=== PATIENT | male | born 1995 | race African-American/Black ===

== ENCOUNTER 2017-09-08 21:47 | Emergency (ER) | payer SELFPAY ==
[~2017-09-08] VITALS: Ht 172.7 cm; Wt 100.0 kg
[2017-09-08] MEDS ORDERED: METHOCARBAMOL 500MG TABLET PO ONE (23:00)
[2017-09-08] MEDS ORDERED: IBUPROFEN 600MG TABLET PO ONE (23:00)
[2017-09-09 02:19] VITALS: BP 125/64
== END 2017-09-09 02:21 | disposition home or self-care (01) ==
LOC: ER 21:56
DX: S16.1XXA Strain of muscle, fascia and tendon at neck level, initial encounter (principal); F12.10 Cannabis abuse, uncomplicated; H40.9 Unspecified glaucoma; V43.52XA Car driver injured in collision with other type car in traffic accident, initial encounter; Y93.I9 Activity, other involving external motion; Y92.89 Other specified places as the place of occurrence of the external cause; Y99.8 Other external cause status
CPT/HCPCS: 70450; 72125; 99284